=== PATIENT | female | born 1990 | race Caucasian/White ===

== ENCOUNTER 2022-01-21 10:34 | Emergency (ER) | payer BC ==
[~2022-01-21] VITALS: Ht 172.7 cm; Wt 143.0 kg
[~2022-01-21 10:34] MED LIST: ATENOLOL25 MG PO; LOW-OGESTREL1 EACH PO; NORCO 5-325 TA1 EACH PO
--- OUTSIDE RECORDS SUMMARY | 2022-01-21 10:36 | XMS ---
PreManage Notification: MELINDA LARSEN Security Quality Project Manager Events No recent Security Events currently on file CRITERIA MET - PDMP CARE PROVIDERS MIGUEL [facility] Current PHONE: Unknown Leann has no Care Guidelines for this patient. [facility]Kam VISIT COUNT (12 MO.) 1 SHAY Gaitan TOTAL 1 NOTE: Visits indicate total known visits. ED/UCC VISIT TRACKING (12 MO.) 01/21/2022 10:34 [facility] OR TYPE: Emergency COMPLAINT: - L SIDE BACK SHOULDER PAIN INPATIENT VISIT TRACKING (12 MO.) No inpatient visits to display in this time frame [id number]
[2022-01-21] MEDS ORDERED: LORADAMED10 MG (12:08)
[2022-01-21] MEDS ORDERED: SIMPESSE 0.15-1 EACH PO (12:08)
[2022-01-21] MEDS ORDERED: SUDAFED 12 HOU120 MG PO (12:08)
[2022-01-21] MEDS ORDERED: PREDNISONE20 MG PO (15:30)
[2022-01-21] MEDS ORDERED: CYCLOBENZAPRINE10 MG PO (15:31)
--- NOTE | 2022-01-21 15:35 | EKG ---
[facility] [address] [facility] [facility] [place] [address] Signed Normal sinus rhythm Normal ECG No previous ECGs available Confirmed by PERRI MITCHELL MD ([id number]) on 01/21/2022 3:35:13 PM Electronically Signed By: PERRI MITCHELL MD 01/21/22 1535 PATIENT NAME: MELINDA LARSEN Electrocardiogram DATE OF : 89 PHYSICIAN: PERRI MITCHELL MD REPORT #: [id number] REPORT IS CONFIDENTIAL AND NOT TO BE RELEASED WITHOUT AUTHORIZATION
== END 2022-01-21 16:00 | disposition home or self-care (01) ==
LOC: ED 10:34
DX: M54.6 Pain in thoracic spine (principal); G43.909 Migraine, unspecified, not intractable, without status migrainosus; Z79.899 Other long term (current) drug therapy
CPT/HCPCS: 36415; 71045; 80053; 85025; 85379; 93005; 93010; 99284-25; J7512